=== PATIENT | female | born 1940 | race Caucasian/White ===

== ENCOUNTER → 2017-09-04 | Outpatient (CLI) | payer OTHER ==
[2017-09-04 07:50] LABS: POTASSIUM 3.5 mmol/L (3.5-5.1)
== END ==
LOC: M.LAB 04:15
PROVIDERS: Anesthesiology
DX: Z01.812 Encounter for preprocedural laboratory examination (principal); E11.9 Type 2 diabetes mellitus without complications

== ENCOUNTER → 2018-03-24 | Outpatient (CLI) | payer OTHER | LOC: M.RAD 16:49 | DX: M25.552 Pain in left hip (principal) ==

== ENCOUNTER → 2018-04-04 | Outpatient (CLI) | payer OTHER | LOC: M.MRI 16:00 | DX: M51.16 Intervertebral disc disorders with radiculopathy, lumbar region (principal); M48.062 Spinal stenosis, lumbar region with neurogenic claudication; M25.78 Osteophyte, vertebrae; G83.12 Monoplegia of lower limb affecting left dominant side ==

== ENCOUNTER → 2018-12-03 | Outpatient (CLI) | payer OTHER | LOC: M.MRI 15:47 | DX: I67.82 Cerebral ischemia (principal) ==